=== PATIENT | female | born 1945 | race Two or more races ===

== ENCOUNTER 2025-03-24 06:15 | Emergency (ER) | payer OTHER ==
[~2025-03-24] VITALS: Ht 149.9 cm; Wt 53.5 kg
[2025-03-24] MEDS ORDERED: DASATINIB (06:46)
[2025-03-24] MEDS ORDERED: FUSION PLUS CA1 EACH (06:46)
[2025-03-24] MEDS ORDERED: ARBLI10 MG/1 ML (06:46)
[2025-03-24] MEDS ORDERED: CERTRALINE (06:47)
[2025-03-24] MEDS ORDERED: HYDRALAZINE HCL10 MG (06:47)
[2025-03-24] MEDS ORDERED: MONTELUKAST SODI4 M1 (06:48)
[2025-03-24] MEDS ORDERED: MIRTAZAPINE7.5 MG (06:48)
[2025-03-24] MEDS ORDERED: RESTORIL7.5 MG (06:48)
[2025-03-24] MEDS ORDERED: DEXAMETHASONE SODIUM PHOSPHATE 4 MG/ML VIAL IM STA (08:00)
[2025-03-24] MEDS ORDERED: KETOROLAC TROMETHAMINE 30 MG VIAL IM STA (08:00)
[2025-03-24] MEDS ORDERED: DEXAMETHASONE SODIUM PHOSPHATE 4 MG/ML VIAL ONE (08:12)
[2025-03-24] MEDS ORDERED: KETOROLAC TROMETHAMINE 30 MG VIAL ONE (08:12)
[2025-03-24] MEDS ORDERED: ONDANSETRON 4 MG TAB.RAPDIS PO ONE (08:34)
[2025-03-24] MEDS ORDERED: DOLOGESIC-DF 51 EACH PO (11:28)
== END 2025-03-24 11:34 | disposition home or self-care (01) ==
LOC: ER 06:16
DX: M62.838 Other muscle spasm (principal); M54.2 Cervicalgia
CPT/HCPCS: 72040; 96372; 99283; J1100; J1885